=== PATIENT | male | born 1975 | race African-American/Black ===

== ENCOUNTER 2021-11-02 17:18 | Emergency (ER) | payer OTHER, MEDICAID ==
[~2021-11-02] VITALS: Ht 190.5 cm; Wt 122.0 kg
[2021-11-02 17:23] VITALS: BP 173/113
== END 2021-11-02 17:42 | disposition left against medical advice (07) ==
LOC: ER 17:18
DX: R07.89 Other chest pain (principal); I10 Essential (primary) hypertension
CPT/HCPCS: 99283